=== PATIENT | male | born 1970 | race Two or more races ===

== ENCOUNTER 2020-04-15 17:56 | Inpatient (IN) | payer MEDICAID ==
[~2020-04-15] VITALS: Ht 170.2 cm; Wt 72.1 kg
[2020-04-15] MEDS ORDERED: SODIUM CHLORIDE 0.9% 1,000 ML IV ONE (19:47)
[2020-04-15 20:05] LABS: BASOPHILS % 0.7 % (0.0-2.0); EOSINOPHILS % 2.3 % (0.0-5.0); HEMATOCRIT. 41.5 % (42.0-52.0); HEMOGLOBIN. 14.3 g/dL (14.0-18.0); LYMPHOCYTES % 21.7 % (20.0-50.0); MEAN CORPUSCULAR HEMOGLOBIN 32.2 pg (28.0-32.0); MEAN CORPUSCULAR VOLUME 93.2 fL (80.0-94.0); MEAN PLATELET VOLUME 9.2 fl (7.4-10.4); MONOCYTES % 4.8 % (2.0-8.0); NEUTROPHILS % 70.5 % (40.0-76.0); PLATELET 235 x1000/uL (130-400); RED BLOOD CELL COUNT 4.45 mill/uL (4.7-6.1); RED CELL DISTRIBUTION WIDTH 12.9 % (11.6-14.6)
[2020-04-15 20:13] LABS: CHLORIDE 109 mEq/L (98-107)
[2020-04-15] MEDS ORDERED: IOHEXOL-350 100 ML BOTTLE ONE (22:52)
[2020-04-16 03:30] VITALS: BP 100/57
[2020-04-16 04:06] VITALS: BP 110/57
[2020-04-16] MEDS ORDERED: HYDROCODONE/ACETAMINOPHEN 5/325MG TABLET PO PRN (04:30)
[2020-04-16] MEDS ORDERED: ATOR40TA70 MT (04:44)
[2020-04-16] MEDS ORDERED: LANS15CA17 MT (04:54)
[2020-04-16] MEDS ORDERED: MELA3TAB63 MT (04:54)
[2020-04-16] MEDS ORDERED: ATEN-42 MT (04:55)
[2020-04-16] MEDS ORDERED: PARO30TA62 MT (04:56)
[2020-04-16] MEDS ORDERED: FENO145T25 MT (04:57)
[2020-04-16 06:46] LABS: CHLORIDE 110 mEq/L (98-107)
[2020-04-16 06:48] LABS: BASOPHILS % 0.7 % (0.0-2.0); EOSINOPHILS % 1.5 % (0.0-5.0); HEMATOCRIT. 39.7 % (42.0-52.0); HEMOGLOBIN. 13.7 g/dL (14.0-18.0); LYMPHOCYTES % 19.5 % (20.0-50.0); MEAN CORPUSCULAR HEMOGLOBIN 31.7 pg (28.0-32.0); MEAN CORPUSCULAR VOLUME 91.8 fL (80.0-94.0); MEAN PLATELET VOLUME 8.8 fl (7.4-10.4); MONOCYTES % 5.1 % (2.0-8.0); NEUTROPHILS % 73.2 % (40.0-76.0); PLATELET 219 x1000/uL (130-400); RED BLOOD CELL COUNT 4.32 mill/uL (4.7-6.1); RED CELL DISTRIBUTION WIDTH 12.7 % (11.6-14.6)
[2020-04-16 06:54] LABS: LDL CHOLESTEROL 82 mg/dL (5-100)
[2020-04-16 06:55] LABS: HDL CHOLESTEROL 30 mg/dL (40-59)
[2020-04-16 08:00] VITALS: BP 105/62
[2020-04-16] MEDS: OMEPRAZOLE 20MG CAPSULE EXTENDED RELEASE PO SCH (08:00)
[2020-04-16] MEDS: PAROXETINE HCL 10MG TABLET PO SCH (08:51)
[2020-04-16] MEDS: ASPIRIN 325MG EC TABLET PO SCH (08:52)
[2020-04-16] MEDS ORDERED: METOPROLOL TARTRATE 25MG TABLET PO SCH (09:00)
[2020-04-16 11:13] LABS: LDL CHOLESTEROL 86 mg/dL (5-100)
[2020-04-16 11:15] LABS: HDL CHOLESTEROL 31 mg/dL (40-59)
[2020-04-16 11:16] LABS: T4 FREE 0.99 ng/dL (0.76-1.46)
[2020-04-16] MEDS: SODIUM CHLORIDE 0.9% 1,000 ML IV SCH ×2 (11:30→23:32)
[2020-04-16 12:12] VITALS: BP 103/59
[2020-04-16 16:00] VITALS: BP_SYST 101; BP_SYST 107; BP_SYST 111; BP_DIAS 63; BP_DIAS 64; BP_DIAS 67
[2020-04-16 16:43] LABS: CREATINE KINASE 59 IU/L (39-308)
[2020-04-16 16:45] LABS: CREATINE KINASE MB FRACTION < 1.0 ng/mL (0.5-3.6)
[2020-04-16 19:42] LABS: METHADONE URINE SCREEN NEGATIVE (NEGATIVE); OPIATES URINE SCREEN NEGATIVE (NEGATIVE)
[2020-04-16 19:43] LABS: *AMPHETAMINES SCREEN URINE NEGATIVE (NEGATIVE); *BARBITURATES SCREEN URINE NEGATIVE (NEGATIVE); *BENZODIAZEPINES SCREEN URINE NEGATIVE (NEGATIVE); *COCAINE SCREEN URINE NEGATIVE (NEGATIVE); CANNABINOID URINE SCREEN PRESUMTIVE POSITIVE (NEGATIVE); PHENCYCLIDINE URINE SCREEN NEGATIVE (NEGATIVE)
[2020-04-16 19:47] LABS: CLARITY URINE CLEAR (CLEAR); COLOR URINE YELLOW (YELLOW); KETONES URINE NEGATIVE (NEGATIVE); LEUKOCYTE ESTERASE URINE 2+ (NEGATIVE); NITRITE URINE NEGATIVE (NEGATIVE); OCCULT BLOOD URINE NEGATIVE (NEGATIVE); PROTEIN URINE NEGATIVE (NEGATIVE); SPECIFIC GRAVITY URINE 1.011 (1.005-1.030); UROBILINOGEN URINE 0.2 E.U./dL (0.2-1.0)
[2020-04-16 20:00] VITALS: BP_SYST 101; BP_SYST 113; BP_DIAS 61; BP_DIAS 65; BP_DIAS 69
[2020-04-16] MEDS ORDERED: ATORVASTATIN CALCIUM 20MG TABLET PO SCH (21:00)
[2020-04-16 23:46] LABS: CREATINE KINASE 59 IU/L (39-308)
[2020-04-16 23:47] LABS: CREATINE KINASE MB FRACTION < 1.0 ng/mL (0.5-3.6)
[2020-04-17] VITALS: BP_SYST 107; BP_SYST 109; BP_DIAS 63; BP_DIAS 64
[2020-04-17 04:00] VITALS: BP 105/62
[2020-04-17] MEDS: OMEPRAZOLE 20MG CAPSULE EXTENDED RELEASE PO SCH (06:14)
[2020-04-17 06:36] LABS: CREATINE KINASE 55 IU/L (39-308)
[2020-04-17 06:38] LABS: CREATINE KINASE MB FRACTION < 1.0 ng/mL (0.5-3.6)
[2020-04-17 08:00] VITALS: BP_SYST 105; BP_SYST 112; BP_SYST 116; BP_DIAS 63; BP_DIAS 70
[2020-04-17] MEDS: ASPIRIN 325MG EC TABLET PO SCH (09:02)
[2020-04-17] MEDS: PAROXETINE HCL 10MG TABLET PO SCH (09:04)
[2020-04-17 12:00] VITALS: BP 107/62
[2020-04-17] MEDS: SODIUM CHLORIDE 0.9% 1,000 ML IV SCH (13:10)
[2020-04-17 15:49] VITALS: BP 99/54
[2020-04-17 16:00] VITALS: BP 99/54
[2020-04-18] MEDS ORDERED: FAMOTIDINE 20MG TABLET PO SCH (09:00)
== END 2020-04-17 16:45 | disposition home or self-care (01) | DRG 48 ==
LOC: ER 17:56 → 8WST 04-16 01:14 → ENRESERV 04-16 01:59
PROVIDERS: ADMIT Internal Medicine; ATTEND Internal Medicine
DX: G90.8 Other disorders of autonomic nervous system (principal); E87.8 Other disorders of electrolyte and fluid balance, not elsewhere classified; E78.5 Hyperlipidemia, unspecified; I10 Essential (primary) hypertension; F17.210 Nicotine dependence, cigarettes, uncomplicated; E78.00 Pure hypercholesterolemia, unspecified; F12.90 Cannabis use, unspecified, uncomplicated; Z71.6 Tobacco abuse counseling
CPT/HCPCS: 36415; 70551; 71045; 71275; 80048; 80053; 80061; 80305; 81003; 82550; 82553; 82962; 83036; 83880; 84439; 84443; 84484; 85025; 85379; 93005; 93306; 93880; 93970; 96365; 99285; J7030; Q9967